=== PATIENT | male | born 1950 | race Asian ===

== ENCOUNTER 2018-03-07 00:38 | Emergency (ER) | payer MEDICARE, MEDICAID ==
[~2018-03-07] VITALS: Ht 167.6 cm; Wt 61.7 kg
[2018-03-07 01:26] LABS: BASOPHILS # (AUTO) 0.03 x10^3/uL (0-0.1); BASOPHILS % (AUTO) 0 % (0-1); EOSINOPHILS # (AUTO) 0.06 x10^3/uL (0-0.4); EOSINOPHILS % (AUTO) 1 % (1-7); LYMPHOCYTES # (AUTO) 2.28 x10^3/uL (1-3.4); LYMPHOCYTES % (AUTO) 33 % (22-44); MD NO; MEAN CORPUSCULAR HEMOGLOBIN 33.3 pg (27.5-34.5); MEAN CORPUSCULAR HGB CONC 34.4 g/dL (33.2-36.2); MEAN CORPUSCULAR VOLUME 96.6 fL (81-97); MEAN PLATELET VOLUME 8.6 fL (7.4-10.4); MONOCYTES # (AUTO) 0.46 x10^3/uL (0.2-0.8); MONOCYTES % (AUTO) 7 % (2-9); NEUTROPHILS # (AUTO) 4.04 x10^3/uL (1.8-6.8); NEUTROPHILS % (AUTO) 59 % (42-75); PLATELET COUNT 179 x10^3/uL (130-400); RED BLOOD COUNT 4.98 x10^6/uL (4.38-5.82); RED CELL DISTRIBUTION WIDTH 12.9 % (9.4-14.8)
[2018-03-07 01:37] LABS: ALANINE AMINOTRANSFERASE 32 U/L (12-78); ALBUMIN 3.7 g/dL (3.4-5.0); ANION GAP 8 mmol/L (5-15); CALCIUM 8.5 mg/dL (8.5-10.1); CHLORIDE 111 mmol/L (98-107); CREATININE 1.16 mg/dL (0.7-1.3)
[2018-03-07 01:41] LABS: ALKALINE PHOSPHATASE 75 U/L (45-117); BILIRUBIN,TOTAL 0.7 mg/dL (0.2-1.0); TOTAL PROTEIN 7.2 g/dL (6.4-8.2); TROPONIN I < 0.015 ng/mL (0.000-0.045)
[2018-03-07 02:28] VITALS: BP 130/77
== END 2018-03-07 02:50 | disposition home or self-care (01) ==
LOC: ED 02:44
DX: J15.9 Unspecified bacterial pneumonia (principal)
CPT/HCPCS: 36415; 71046; 80053; 83880; 84484; 85025; 93005; 99285

== ENCOUNTER 2019-05-25 10:33 | Observation (INO) | payer MEDICARE, MEDICAID ==
[~2019-05-25] VITALS: Ht 167.6 cm; Wt 60.6 kg
--- NOTE | 2019-05-25 10:46 | NUR ---
PT STATES "I HAVE NO MONEY." PT EDUCATED THAT WE BILL ALL INSURANCES AND I AM UNAWARE HOW THE FINANCES WORK IN THE HOSPITAL. THIS RN ALSO STATED "THAT IF NEEDED THEY MAY SEND A BILL, BUT I'M NOT SURE. WE WILL STILL SEE YOU AND CHECK OUT WHY YOU'RE HAVING CHEST PAIN." PT STATES "I HAVE NO MONEY. JUST TAKE THIS OFF. I'M GOING." PT ALSO EDUCATED REGARDING LEAVING WITHOUT BEING SEEN FOR HIS COMPLIANT OF CHEST PAIN THAT FATALITY CAN BE A RISK. PT STATES "I'M LEAVING."
--- NOTE | 2019-05-25 10:49 | NUR ---
NOW PATIENT BACK IN TRIAGE STATING "OK CONTINUE."
[2019-05-25 11:21] LABS: BASOPHILS # (AUTO) 0.02 x10^3/uL (0-0.1); BASOPHILS % (AUTO) 0 % (0-1); EOSINOPHILS # (AUTO) 0.06 x10^3/uL (0-0.4); EOSINOPHILS % (AUTO) 1 % (1-7); LYMPHOCYTES # (AUTO) 1.39 x10^3/uL (1-3.4); LYMPHOCYTES % (AUTO) 22 % (22-44); MD NO; MEAN CORPUSCULAR HEMOGLOBIN 32.5 pg (27.5-34.5); MEAN CORPUSCULAR HGB CONC 33.2 g/dL (33.2-36.2); MEAN PLATELET VOLUME 8.5 fL (7.4-10.4); MONOCYTES # (AUTO) 0.33 x10^3/uL (0.2-0.8); MONOCYTES % (AUTO) 5 % (2-9); NEUTROPHILS # (AUTO) 4.55 x10^3/uL (1.8-6.8); NEUTROPHILS % (AUTO) 72 % (42-75); PLATELET COUNT 175 x10^3/uL (130-400); RED BLOOD COUNT 5.09 x10^6/uL (4.38-5.82); RED CELL DISTRIBUTION WIDTH 12.4 % (9.4-14.8)
[2019-05-25] MEDS ORDERED: SODIUM CHLORIDE FLUSH 10ML SYR IVF ONE (11:30)
[2019-05-25] MEDS ORDERED: ASPIRIN 81 MG TABLET CHEW PO ONE (11:30)
[2019-05-25] MEDS ORDERED: KETOROLAC 30 MG/1 ML IVPush ONE (11:30)
[2019-05-25] MEDS ORDERED: LORazepam 2 MG/ML, 1ML IVPush ONE (11:30)
[2019-05-25 11:35] LABS: ANION GAP 7 mmol/L (5-15); CALCIUM 8.8 mg/dL (8.5-10.1); CHLORIDE 109 mmol/L (98-107); CREATININE 1.31 mg/dL (0.7-1.3)
[2019-05-25] MEDS ORDERED: LORazepam 2 MG/ML, 1ML ONE (11:36)
[2019-05-25] MEDS ORDERED: ASPIRIN 81 MG TABLET CHEW ONE (11:36)
[2019-05-25] MEDS ORDERED: KETOROLAC 30 MG/1 ML ONE (11:36)
[2019-05-25 11:38] LABS: TROPONIN I < 0.015 ng/mL (0.000-0.045)
--- NOTE | 2019-05-25 13:17 | NUR ---
pt sitting on ROWDY ta VSS. pt understands that he will be admitted to the hospital and agrees at this time.
--- NOTE | 2019-05-25 13:32 | NUR ---
REPORT CALLED TO ELAN HOLBROOK, PT READY FOR TRANSPORT AT THIS TIME.
[2019-05-25 14:30] VITALS: BP 129/75
[2019-05-25] MEDS ORDERED: TEMAZEPAM 15 MG CAPSULE PO PRN (14:30)
[2019-05-25] MEDS ORDERED: morphine SULFATE 10 MG/ML, 1ML IVPush PRN (14:30)
[2019-05-25] MEDS ORDERED: ONDANSETRON 2MG/ML, 2ML IVPush PRN (14:30)
[2019-05-25] MEDS ORDERED: NITROGLYCERIN 0.4 MG BOTTLE (25 TABS) SL PRN (14:30)
[2019-05-25] MEDS ORDERED: hydrALAzine 20 MG/ML, 1ML IVPush PRN (14:30)
[2019-05-25] MEDS ORDERED: ACETAMINOPHEN 325 MG TABLET PO PRN (14:30)
[2019-05-25] MEDS: SODIUM CHLORIDE 0.9% 1,000 ML IV SCH ×2 (14:49→22:56)
[2019-05-25] MEDS ORDERED: ENOXAPARIN 40 MG/0.4 ML SQ SCH (15:00)
[2019-05-25] MEDS ORDERED: NICOTINE 21 MG/24 HR PATCH.TD24 TD SCH (15:00)
[2019-05-25] MEDS ORDERED: FLU VACC QS2019-20 36MOS UP/PF 0.5 ML IM-VACC ONE (16:00)
[2019-05-25 16:31] VITALS: BP 122/84
[2019-05-25 17:27] LABS: TROPONIN I < 0.015 ng/mL (0.000-0.045)
[2019-05-25 19:51] VITALS: BP 119/71
[2019-05-25 23:22] LABS: TROPONIN I < 0.015 ng/mL (0.000-0.045)
[2019-05-26 01:44] VITALS: BP 119/75
[2019-05-26 05:43] LABS: CHLORIDE 114 mmol/L (98-107)
[2019-05-26 05:49] LABS: ANION GAP 6 mmol/L (5-15); CALCIUM 8.1 mg/dL (8.5-10.1); CHOL/HDL RATIO 3.9; CHOLESTEROL, TOTAL 150 mg/dL (140-239); HDL CHOL % 25 % (26-37); HDL CHOLESTEROL (DIRECT) 38 mg/dL (40-60); LDL CHOLESTEROL,CALCULATED 87 mg/dL (54-169); LDL/HDL RATIO 2.3 (0.5-3.0); TRIGLYCERIDES 124 mg/dL (50-200); VLDL CHOLESTEROL 25 mg/dL (0-25)
[2019-05-26] MEDS: SODIUM CHLORIDE 0.9% 1,000 ML IV SCH (06:33)
[2019-05-26 08:27] VITALS: BP 115/76
[2019-05-26] MEDS ORDERED: ASPIRIN 81 MG TABLET CHEW PO SCH (09:00)
[2019-05-26] MEDS ORDERED: REGADENOSON 0.4 MG/5 ML SYRINGE ONE (09:08)
[2019-05-26] MEDS ORDERED: ASPI-515 PO (13:47)
[2019-05-26] MEDS ORDERED: ACET325T26 PO (13:47)
[2019-05-26] MEDS ORDERED: ALBU90AE INH (13:48)
[2019-05-26] MEDS ORDERED: SODIUM CHLORIDE 0.9% 1,000 ML IV SCH (14:30)
[2019-05-26] MEDS ORDERED: ATORVASTATIN 40 MG TABLET PO SCH (21:00)
== END 2019-05-26 15:45 | disposition home or self-care (01) ==
LOC: ED 12:12 → INTOOBSV 12:42 → EDIP 12:42 → 5SO 14:24 → DCLOUNGE 05-26 15:14
PROVIDERS: ADMIT Emergency Medicine; ATTEND Internal Medicine
DX: R07.9 Chest pain, unspecified (principal); N17.0 Acute kidney failure with tubular necrosis; J44.9 Chronic obstructive pulmonary disease, unspecified; F41.1 Generalized anxiety disorder; M54.9 Dorsalgia, unspecified; G89.29 Other chronic pain; Z72.0 Tobacco use; Z90.49 Acquired absence of other specified parts of digestive tract; Z23 Encounter for immunization
CPT/HCPCS: 36415; 71045; 71250; 78452; 80048; 80061; 82040; 84484; 85025; 85379; 90686; 93005; 93017; 96372; 96374; 96375; 99284; A9502; G0008; G0378; J1650; J1885; J2060; J2785; J7030